=== PATIENT | male | born 1965 | race Caucasian/White ===

== ENCOUNTER 2017-10-18 07:23 | Day surgery (SDC) | payer OTHER ==
[2017-10-18] MEDS ORDERED: LACTATED RINGERS 1,000 ML IV ONE (07:55)
[2017-10-18] MEDS ORDERED: fentaNYL 250 MCG/5 ML VIAL IVP ONE (08:03)
[2017-10-18] MEDS ORDERED: MIDAZOLAM 2 MG/2 ML VIAL IVP ONE (08:03)
[2017-10-18 08:47] VITALS: BP 104/65
== END 2017-10-18 07:24 | disposition home or self-care (01) ==
LOC: SDS 07:23
PROVIDERS: ATTEND Surgery
PROC: 0DBH8ZX Excision of Cecum, Via Natural or Artificial Opening Endoscopic, Diagnostic (ICD-10-PCS; principal; 2017-10-18 08:30)
DX: Z12.11 Encounter for screening for malignant neoplasm of colon (principal); D12.0 Benign neoplasm of cecum; K57.30 Diverticulosis of large intestine without perforation or abscess without bleeding; Z80.0 Family history of malignant neoplasm of digestive organs; F17.210 Nicotine dependence, cigarettes, uncomplicated
CPT/HCPCS: 45380; J3010; J7120; 88305

== ENCOUNTER 2018-03-28 11:25 | Outpatient (CLI) | payer OTHER | END 2018-03-28 11:26 | disposition home or self-care (01) | LOC: SC 11:25 | PROVIDERS: ATTEND Internal Medicine Pulmonary Disease | DX: G47.30 Sleep apnea, unspecified (principal); R41.89 Other symptoms and signs involving cognitive functions and awareness; G47.10 Hypersomnia, unspecified; R06.83 Snoring | CPT/HCPCS: 99203; 99212 ==

== ENCOUNTER 2018-05-16 20:30 | Outpatient (CLI) | payer OTHER | END 2018-05-16 20:31 | disposition home or self-care (01) | LOC: SC 20:30 | PROVIDERS: ATTEND Internal Medicine Pulmonary Disease | DX: R06.83 Snoring (principal); G47.10 Hypersomnia, unspecified | CPT/HCPCS: 95810 ==

== ENCOUNTER 2018-06-07 08:15 | Outpatient (CLI) | payer OTHER | END 2018-06-07 08:16 | disposition home or self-care (01) | LOC: SC 08:15 | PROVIDERS: ATTEND Nurse Practitioner Family | DX: R06.83 Snoring (principal); J34.2 Deviated nasal septum; R53.83 Other fatigue | CPT/HCPCS: 99212; 99214 ==